=== PATIENT | male | born 1985 | race Caucasian/White ===

== ENCOUNTER 2017-01-10 17:22 | Emergency (ER) | payer SELFPAY ==
[~2017-01-10] VITALS: Ht 170.2 cm; Wt 82.0 kg
[~2017-01-10 17:22] MED LIST: CETI10CA PO; CYCL-319 PO; GUAI120S26 PO; IBUP-1542 PO; IBUP800T25 PO; OSLT75C PO; TRAM50TA2 PO
[2017-01-10 18:04] VITALS: Ht 170.2 cm; Wt 82.0 kg
--- NOTE | 2017-01-10 19:33 | ERD ---
ER Documentation Chief Complaint Date/Time DATE: 01/10/17 TIME: 19:25 Chief Complaint LEFT EAR HEARING LOSS X 1 MONTH, DENIES PAIN. HPI 31-year-old male with no significant past medical history presents to the ED complaining of left hearing loss that started intermittently 1 month ago. States that he feels like there is a slight throbbing sensation in the left side of his ear. Denies any use of Q-tips. Denies any ear trauma. Denies listening to loud music. Denies any headache, weakness, chest pain, shortness breath, vomiting, nausea, vomiting, blurred vision, rashes. Denies any smoking , drug use, alcohol use. ROS All systems reviewed and are negative except as per history of present illness. Medications Home Meds Active Scripts Cyclobenzaprine Hcl* (Cyclobenzaprine Hcl*) 10 Mg Tablet, 10 MG PO BID, #14 TAB Prov:SEGUNDO JORDAN PA-C 08/05/16 Ibuprofen* (Motrin*) 800 Mg Tab, 800 MG PO Q6, #30 TAB Prov:SEGUNDO JORDAN PA-C 08/05/16 Tramadol HCl (Tramadol HCl) 50 Mg Tablet, 50 MG PO Q4 Y for PAIN, #20 TAB Prov:SEGUNDO JORDAN PA-C 08/05/16 Oseltamivir Phosphate* (Tamiflu*) 75 Mg Capsule, 75 MG PO BID for 5 Days, CAP Prov:SAM TRAN NP 01/14/16 Cetirizine Hcl* (Zyrtec*) 10 Mg Capsule, 10 MG PO DAILY, #30 TAB.CHEW Prov:SAM TRAN NP 01/14/16 Ibuprofen* (Motrin*) 600 Mg Tab, 600 MG PO Q6H Y for PAIN AND OR ELEVATED TEMP, #30 TAB Prov:SAM TRAN NP 01/14/16 Wjtdhllvgfb-Z-Qudbagtopl Hb* (Guaifenesin* DM Syrup) 120 Ml Syrup, 10 ML PO Q4H Y for COUGH, #120 ML Prov:SAM TRAN NP 01/14/16 Reported Medications [none] Unknown Strength No Conflict Check 01/14/16 Allergies Allergies: Coded Allergies: No Known Allergy (Unverified , 08/05/16) PMhx/Soc History of Surgery: Yes (Appy) Anesthesia Reaction: No Hx Neurological Disorder: No Hx Respiratory Disorders: Yes (URIs) Hx Cardiac Disorders: No Hx Psychiatric Problems: No Hx Miscellaneous Medical Probl: No Hx Alcohol Use: Yes (Social) Hx Substance Use: No Hx Tobacco Use: No Smoking Status: Light tobacco smoker Physical Exam Vitals Vital Signs Date Time Temp Pulse Resp B/P Pulse Ox O2 Delivery O2 Flow Rate FiO2 01/10/17 18:04 97.9 83 20 125/69 97 Physical Exam Const: Ovh-odk-gxqdpuqqj, well-nourished. In no acute distress. Head: Atraumatic, normocephalic Eyes: Normal Conjunctiva without injection. No purulent discharge. PERRL. EOMI ENT: Normal external ear. Ear canal without erythema. Bilateral obstructed tympanic membranes with brown cerumen noted. No purulent discharge. No tenderness to palpation of the tragus or mastoid. Moist oropharynx without tonsillar exudates. Non-erythematous pharynx. Uvula midline. No drooling. No trismus. Neck: Full range of motion. No meningismus. No cervical lymphadenopathy. Resp: Clear to auscultation bilaterally. No wheezing, rhonchi, rales, or crackles. No accessory muscle use. No retractions. Cardio: Regular rate and rhythm. No murmurs, rubs or gallops. Abd: Soft, non tender, non distended. Normal bowel sounds. No palpable masses. No rebound tenderness. No guarding. Skin: No petechiae or rashes Back: No midline tenderness. No CVA tenderness. Ext: No cyanosis, or edema. Neur: Awake and alert. Psych: Normal Mood and Affect Procedures/MDM 31-year-old male with no significant past medical history presents the ED complaining of left ear hearing loss that started intermittently 1 month ago. Patient is afebrile and nontoxic-appearing. Patient has normal vital signs. He gave consent to remove the cerumen at this time. 120 cc of warm normal saline with used for patient's bilateral ears to remove the brown cerumen with success. No rupture of tympanic membrane. No tenderness to palpation of the tragus or mastoid. Patient stated that he came here with his bilateral ears without difficulty. There is low suspicion for ruptured tympanic membrane, otitis media, otitis externa, mastoiditis, deep space infection, Leonel angina, retropharyngeal abscess, peritonsillar abscess, strep pharyngitis, TIA, stroke, meningitis or other emergent conditions. Follow up with primary care physician in 1-2 days. Instructed patient to return to the ED sooner for any worsening symptoms. Patient's questions were answered. Patient understood and agreed with discharge plan. Patient discharged stable. Departure Diagnosis: Primary Impression: Cerumen impaction Laterality: bilateral Qualified Code: H61.23 - Bilateral impacted cerumen Condition: Stable Patient Instructions: Cerumen Impaction, Home Care Referrals: COMMUNITY CLINICS YOU HAVE RECEIVED A MEDICAL SCREENING EXAM AND THE RESULTS INDICATE THAT YOU DO NOT HAVE A CONDITION THAT REQUIRES URGENT TREATMENT IN THE EMERGENCY DEPARTMENT. FURTHER EVALUATION AND TREATMENT OF YOUR CONDITION CAN WAIT UNTIL YOU ARE SEEN IN YOUR DOCTORS OFFICE WITHIN THE NEXT 1-2 DAYS. IT IS YOUR RESPONSIBILITY TO MAKE AN APPOINTMENT FOR FOLOW-UP CARE. IF YOU HAVE A PRIMARY DOCTOR --you should call your primary doctor and schedule an appointment IF YOU DO NOT HAVE A PRIMARY DOCTOR YOU CAN CALL OUR PHYSICIAN REFERRAL HOTLINE AT IF YOU CAN NOT AFFORD TO SEE A PHYSICIAN YOU CAN CHOSE FROM THE FOLLOWING [facility] [address] [facility]. [facility] [address] [facility] [address] [facility] [facility] [address] [facility]. [facility] [address] [facility]. [facility]. [address] [facility]. [facility] YOU HAVE RECEIVED A MEDICAL SCREENING EXAM AND THE RESULTS INDICATE THAT YOU DO NOT HAVE A CONDITION THAT REQUIRES URGENT TREATMENT IN THE EMERGENCY DEPARTMENT. FURTHER EVALUATION AND TREATMENT OF YOUR CONDITION CAN WAIT UNTIL YOU ARE SEEN IN YOUR DOCTORS OFFICE WITHIN THE NEXT 1-2 DAYS. IT IS YOUR RESPONSIBILITY TO MAKE AN APPOINTMENT FOR FOLOW-UP CARE. IF YOU HAVE A PRIMARY DOCTOR --you should call your primary doctor and schedule and appointment IF YOU DO NOT HAVE A PRIMARY DOCTOR YOU CAN CALL OUR PHYSICIAN REFERRAL HOTLINE AT . IF YOU CAN NOT AFFORD TO SEE A PHYSICIAN YOU CAN CHOSE FROM THE FOLLOWING [facility] INSTITUTIONS: [facility] [address] [place] [address] [facility] [address] [place] [address] [facility] [address] [place] [address] [facility] URGENT CARE/SPECIALTIES Additional Instructions: No use q-tips para limpiar odos. Visite a powell mdestuardo aponte para un EXAMEN.Regrese a estas instalaciones si no se mejora rosa isela esperbamos o rosa isela le dijimos. EVONNE TUCKER PA-C Jan 10, 2017 19:33
== END 2017-01-10 19:41 | disposition home or self-care (01) ==
LOC: FTE 17:22
DX: H61.23 Impacted cerumen, bilateral (principal); F17.210 Nicotine dependence, cigarettes, uncomplicated

== ENCOUNTER 2017-01-24 18:01 | Emergency (ER) | payer MEDICAID ==
[~2017-01-24] VITALS: Ht 167.6 cm; Wt 82.1 kg
[2017-01-24 18:59] VITALS: Ht 167.6 cm; Wt 82.1 kg
[2017-01-24] MEDS ORDERED: IBUP-1542 PO (19:09)
[2017-01-24] MEDS ORDERED: AMO500 PO (19:09)
--- NOTE | 2017-01-24 19:10 | ERD ---
ER Documentation Chief Complaint Date/Time DATE: 01/24/17 TIME: 19:10 Chief Complaint sore throat x 2 days HPI This 31-year-old male presents with sore throat for last 2 days. He may have had tactile fever but no fever triage. He has no cough, vomiting, abdominal pain, neck stiffness, rashes ROS All systems reviewed and are negative except as per history of present illness. Medications Home Meds Active Scripts Ibuprofen* (Motrin*) 600 Mg Tab, 600 MG PO Q6, #15 TAB Prov:TORIBIO TONY MD 01/24/17 Amoxicillin* (Amoxicillin*) 500 Mg Cap, 500 MG PO TID for 10 Days, CAP Prov:TORIBIO TONY MD 01/24/17 Cyclobenzaprine Hcl* (Cyclobenzaprine Hcl*) 10 Mg Tablet, 10 MG PO BID, #14 TAB Prov:SEGUNDO JORDANC 08/05/16 Ibuprofen* (Motrin*) 800 Mg Tab, 800 MG PO Q6, #30 TAB Prov:SEGUNDO JORDAN PA-C 08/05/16 Tramadol HCl (Tramadol HCl) 50 Mg Tablet, 50 MG PO Q4 Y for PAIN, #20 TAB Prov:SEGUNDO JORDAN PA-C 08/05/16 Oseltamivir Phosphate* (Tamiflu*) 75 Mg Capsule, 75 MG PO BID for 5 Days, CAP Prov:SAM TRAN NP 01/14/16 Cetirizine Hcl* (Zyrtec*) 10 Mg Capsule, 10 MG PO DAILY, #30 TAB.CHEW Prov:SAM TRAN NP 01/14/16 Ibuprofen* (Motrin*) 600 Mg Tab, 600 MG PO Q6H Y for PAIN AND OR ELEVATED TEMP, #30 TAB Prov:SAM TRAN NP 01/14/16 Mezziilwwiu-U-Cwwxodpewl Hb* (Guaifenesin* DM Syrup) 120 Ml Syrup, 10 ML PO Q4H Y for COUGH, #120 ML Prov:SAM TRAN NP 01/14/16 Reported Medications [none] Unknown Strength No Conflict Check 01/14/16 Allergies Allergies: Coded Allergies: No Known Allergy (Unverified , 08/05/16) PMhx/Soc History of Surgery: Yes (Appy) Anesthesia Reaction: No Hx Neurological Disorder: No Hx Respiratory Disorders: Yes (URIs) Hx Cardiac Disorders: No Hx Psychiatric Problems: No Hx Miscellaneous Medical Probl: No Hx Alcohol Use: Yes (Social) Hx Substance Use: No Hx Tobacco Use: No Physical Exam Vitals Vital Signs Date Time Temp Pulse Resp B/P Pulse Ox O2 Delivery O2 Flow Rate FiO2 01/24/17 18:59 99.2 105 18 122/69 98 Physical Exam Const: [] Alert, vsj-ksu-dhununsry Head: Atraumatic Eyes: Normal Conjunctiva ENT: Normal External Ears, Nose and Mouth. There is erythema in oropharynx and 3+ tonsils. Uvula midline airway patent. There are some tender anterior cervical lymphadenitis. Neck: Full range of motion..~ No meningismus. Resp: Clear to auscultation bilaterally Cardio: Regular rate and rhythm, no murmurs Abd: Soft, non tender, non distended. Normal bowel sounds Skin: No petechiae or rashes Back: No midline or flank tenderness Ext: No cyanosis, or edema Neur: Awake and alert Psych: Normal Mood and Affect Procedures/MDM This patient presents with signs and symptoms of acute pharyngitis. Will treat with amoxicillin and ibuprofen. There is no evidence of airway obstruction or abscess. The patient was stable with no new complaints during the ER course. Clinically, there is no current evidence to suggest meningitis, sepsis, acute abdomen, pneumonia, acute coronary syndrome, pulmonary embolism, or any other emergent condition appearing to require further evaluation or hospitalization. The patient should certainly return for any new or worsening symptoms per the aftercare instructions. They should otherwise follow-up with her primary care doctor for reevaluation this week. Departure Diagnosis: Primary Impression: Sore throat Condition: Stable Patient Instructions: Pharyngitis, Strep (Presumed) Additional Instructions: Cheque otro vez con powell doctor primario en el proximo jimenez or regresa para mas o nueva simptomas. TORIBIO TONY MD Jan 24, 2017 19:10
== END 2017-01-24 19:20 | disposition home or self-care (01) ==
LOC: FTE 18:01
DX: J02.9 Acute pharyngitis, unspecified (principal)
CPT/HCPCS: 99283

== ENCOUNTER 2018-06-12 16:59 | Emergency (ER) | END 2018-06-12 20:21 | disposition home or self-care (01) ==